=== PATIENT | female | born 1985 | race Caucasian/White ===

== ENCOUNTER 2017-06-05 21:34 | Emergency (ER) | payer SELFPAY ==
[~2017-06-05] VITALS: Ht 165.1 cm; Wt 74.1 kg
[2017-06-05 21:38] VITALS: BP 135/80
== END 2017-06-05 22:47 | disposition home or self-care (01) ==
LOC: EME 21:34
DX: M25.532 Pain in left wrist (principal); Z87.81 Personal history of (healed) traumatic fracture; F17.200 Nicotine dependence, unspecified, uncomplicated
CPT/HCPCS: 73110; 99281; 99284